=== PATIENT | male | born 1995 | race Caucasian/White ===

== ENCOUNTER → 2017-10-20 | Outpatient (REF) ==
[2017-10-20 10:58] LABS: LDL CHOLESTEROL 67 mg/dl
== END ==
DX: Z02.9 Encounter for administrative examinations, unspecified (principal)

== ENCOUNTER → 2018-09-30 | Outpatient (REF) ==
[~2018-09-30] MED LIST: ALPR-429 PO; ESC10 PO
[2018-09-30 12:28] LABS: LDL CHOLESTEROL 65 mg/dl
== END ==
DX: Z02.9 Encounter for administrative examinations, unspecified (principal)